=== PATIENT | male | born 1990 | race Two or more races ===

== ENCOUNTER 2022-02-12 21:24 | Emergency (ER) | payer SELFPAY ==
[~2022-02-12] VITALS: Ht 165.1 cm; Wt 75.0 kg
[2022-02-12] MEDS ORDERED: ALBU8HFA IH (22:38)
[2022-02-12 22:47] LABS: COVID AG,FIA SOURCE NASAL SWAB
[2022-02-12] MEDS ORDERED: IPRATROPIUM BROMIDE 0.5 MG/2.5 ML NEB SOLUTION NEB ONE (23:15)
[2022-02-12] MEDS ORDERED: ALBUTEROL SULFATE 5 MG/ML 20 ML NEB SOLN [BULK] NEB ONE (23:15)
[2022-02-12] MEDS ORDERED: PredniSONE 20 MG TABLET PO ONE (23:30)
[2022-02-13 01:12] VITALS: BP 120/74
== END 2022-02-13 01:45 | disposition home or self-care (01) ==
LOC: EMS 21:26
DX: J45.901 Unspecified asthma with (acute) exacerbation (principal); Z20.822 Contact with and (suspected) exposure to COVID-19; Z79.899 Other long term (current) drug therapy
CPT/HCPCS: 99285; 71045; 87426; 94644; J7512; J7611